=== PATIENT | female | born 1990 | race Caucasian/White ===

== ENCOUNTER 2019-06-20 00:41 | Emergency (ER) | payer OTHER ==
[~2019-06-20] VITALS: Ht 162.6 cm; Wt 111.6 kg
[2019-06-20 00:45] VITALS: Ht 162.6 cm; Wt 111.6 kg
[2019-06-20 04:09] LABS: CALCIUM 9.2 mg/dL (8.5-10.1); CARBON DIOXIDE 30.1 mmol/L (21-32); CHLORIDE SERUM 104 mmol/L (98-107); CREATININE SERUM 0.6 mg/dL (0.6-1.0); GFR1 > 60 mL/min; GLUCOSE SERUM 99 mg/dL (74-106); POTASSIUM SERUM 4.3 mmol/L (3.5-5.1); SODIUM SERUM 140 mmol/L (136-145)
[2019-06-20 04:14] LABS: ALBUMIN 3.5 g/dL (3.4-5.0); ALKALINE PHOSPHATASE 110 U/L (46-116); ALT/SGPT 17 U/L (14-59); AST/SGOT 14 U/L (15-37); BILIRUBIN TOTAL 0.21 mg/dL (0.20-1.00); LIPASE 137 IU/L (73-393)
[2019-06-20 04:33] LABS: BASOPHIL % 0.3 % (0-2); PLATELET COUNT 333 x10^3mcL (130-400); RED CELL DISTRIBUTION WIDTH 13.8 % (11.5-14.5)
[2019-06-20 04:34] LABS: microscopic required? YES; urine erythrocyte NEGATIVE (NEGATIVE)
[2019-06-20 08:15] VITALS: BP 132/93
== END 2019-06-20 08:15 | disposition home or self-care (01) ==
LOC: ED 00:41
PROVIDERS: Emergency Medicine
DX: R10.31 Right lower quadrant pain (principal); R10.32 Left lower quadrant pain; R11.10 Vomiting, unspecified
CPT/HCPCS: J1885; J2405